=== PATIENT | female | born 1965 | race Caucasian/White ===

== ENCOUNTER 2019-03-24 22:07 | Emergency (ER) | payer SELFPAY ==
[~2019-03-24] VITALS: Ht 144.8 cm; Wt 62.0 kg
[2019-03-24] MEDS ORDERED: HYDROCODONE/ACETAMINOPHEN 5/325MG TABLET PO ONE (23:15)
[2019-03-24] MEDS ORDERED: AMLODIPINE 10MG TABLET PO ONE (23:15)
[2019-03-25 02:48] VITALS: BP 159/91
== END 2019-03-25 02:58 | disposition home or self-care (01) ==
LOC: ER 22:07
DX: H92.01 Otalgia, right ear (principal); H91.91 Unspecified hearing loss, right ear; R51 Headache; I49.9 Cardiac arrhythmia, unspecified
CPT/HCPCS: 93005; 99284